=== PATIENT | female | born 1940 | race Caucasian/White ===

== ENCOUNTER 2018-09-01 11:16 | Inpatient (IN) | payer OTHER ==
[~2018-09-01] VITALS: Ht 154.9 cm; Wt 70.3 kg
[2018-09-01 11:54] LABS: BASOPHILS ABSOLUTE AUTO 0.07 K/mm3 (0.00-0.23); BASOPHILS PERCENT AUTO 1 % (0-2); EOSINOPHILS ABSOLUTE AUTO 0.12 K/mm3 (0.00-0.68); EOSINOPHILS PERCENT AUTO 1 % (0-6); IMMATURE GRAN ABSOLUTE AUTO 0.04 K/mm3 (0.00-0.10); IMMATURE GRAN PERCENT AUTO 0 % (0-1); LYMPHOCYTES ABSOLUTE AUTO 2.59 K/mm3 (0.84-5.20); LYMPHOCYTES PERCENT AUTO 27 % (21-46); MONOCYTES ABSOLUTE AUTO 0.55 K/mm3 (0.16-1.47); MONOCYTES PERCENT AUTO 6 % (4-13); Mean Corpuscular HGB 30.6 pg (26.0-34.0); Mean Corpuscular HGB Conc 33.3 g/dL (31.5-36.5); Mean Corpuscular Volume 92 fL (80-100); NEUTROPHILS ABSOLUTE AUTO 6.29 K/mm3 (1.96-9.15); NEUTROPHILS PERCENT AUTO 65 % (41-73); Platelet Count 248 K/mm3 (150-400); RDW Coefficient Variation 12.2 % (11.7-14.2); RDW Standard Deviation 41.9 fL (35.1-46.3); White Blood Cell Count 9.66 K/mm3 (4.00-11.30)
[2018-09-01 12:06] LABS: International Normalized Ratio 0.97
[2018-09-01 12:12] LABS: Alanine Aminotransfer (ALT/SGP 25 U/L (12-78); Albumin, Blood 3.7 g/dL (3.4-5.0); Albumin/Globulin Ratio 1.1 (0.8-1.8); Alk Phos 155 U/L (50-136); Anion Gap 7 mmol/L (6-16); Aspartate Aminotrans (AST/SGOT 14 U/L (12-37); Bilirubin, Total 0.6 mg/dL (0.1-1.0); Blood Urea Nitrogen 9 mg/dL (8-24); Bun/Creatinine Ratio 17.5 (12.0-20.0); CO2, Blood 31 mmol/L (21-32); Calcium, Blood 8.5 mg/dL (8.5-10.1); Chloride, Blood 102 mmol/L (98-108); Creatinine, Blood 0.51 mg/dL (0.40-1.00); Globulin, Blood 3.5 g/dL (2.2-4.0); Glomerular Filtration Rate >60 (60-); Glucose, Blood 238 mg/dL (70-99); Potassium, Blood 3.1 mmol/L (3.5-5.5); Sodium, Blood 140 mmol/L (136-145); Total Protein, Blood 7.2 g/dL (6.4-8.2)
[2018-09-01 12:17] LABS: Thyroid Stimulating Hormone 0.943 uIU/mL (0.360-4.800)
[2018-09-01 12:35] LABS: Source, Urine Clean Catch
[2018-09-01 12:46] LABS: Bilirubin, Urine Neg (Neg); Blood, Urine Neg (Neg); Glucose Qualitative, Urine 2+ (Neg); Ketones, Urine Neg (Neg); Leukocyte Esterase, Urine 1+ (Neg); Nitrite, Urine Neg (Neg); Protein, Urine 2+ (Neg); Urobilinogen, Urine NORM (Normal)
[2018-09-01 12:56] LABS: Appearance, Urine Clear (Clear); Bacteria Rare /hpf; Color, Urine Yellow (P-Yellow); Red Blood Cells, Urine Not Seen /hpf (0-2); Squamous Epithelial Cells Few /hpf (Few)
[2018-09-02 05:36] LABS: CHOL/HDL RATIO 3.5; Cholesterol 190 mg/dL (50-200); HDL Cholesterol 55 mg/dL (>39); LDL/HDL RATIO 1.7; Low Density Lipoprotein Chol 92 mg/dL (0-110); Triglycerides 213 mg/dL (30-160); Very Low Density Lipoprot Chol 42 mg/dL (6-32)
--- NOTE | 2018-09-02 07:53 | NUR ---
SHIFT SUMMARY PT IS A 77 Y/O, NEW ADMIT. SHE WAS ADMITTED FOR A STROKE AFTER SHE BEGAN HAVING NUMBNESS AND AN INABILITY TO GRASP WITH HER R HAND. THE PT WAS NEUROLOGICALLY INTACT ON ADMISSION, WITH ONLY MINIMAL WEAKNESS OF HER R HAND. NO FACIAL DROOP NOTED. PT'S BP RAN HIGH DURING THE NIGHT, BETWEEN 190-220 SYSTOLICALLY. SHE WAS GIVEN 10 MG OF HYDRALAZINE, WHICH DID NOT HELP HER BP. THE HOSPITALIST, JOHN DENNIS, WAS CONSULTED, AND IV LABETALOL WAS ORDERED. WHEN THE PT'S BP WAS RECHECKED FOR MORNING VITALS, IT WAS HIGH AT 227/115, AND THE LABETOLOL WAS GIVEN. ON RECHECK, IT HAD COME DOWN TO 188/84. ALL OTHER VITALS STABLE. NO OTHER ACUTE CHANGES IN PT CONDITION NOTED DURING THE NIGHT. WILL CONTINUE TO MONITOR AND TREAT PER EMAR UNTIL HAND OFF TO DAY SHIFT.
--- NOTE | 2018-09-02 09:41 | NUR ---
DNR CODE STATUS VERIFIED WITH ZANDRA BERRY. PURPLE WRISTBAND PLACED ON LEFT WRIST.
--- NOTE | 2018-09-02 10:09 | NUR ---
PT TO IMAGING FOR MRI.
--- NOTE | 2018-09-02 12:13 | NUR ---
DR CHÁVEZ NOTIFIED OF PT CONTINUED BP OF 202/101 EVEN AFTER PRN HYDRALAZINE, AND SCHEDULED ORAL MEDS. PER DR CHÁVEZ GIVE ANOTHER DOSE OF HCTZ AND WILL INCREASE TO 25MG DAILY, AND GIVE IV LABETALOL. WILL READRESS INCREASING OTHER MEDS AFTER A FEW HOURS. WILL CONT TO MONITOR.
--- NOTE | 2018-09-02 12:56 | NUR ---
WENT IN TO GIVE HCTZ AND IV LABETALOL PER DR CHÁVEZ, RECHECKED BP OF 160/100, PO HCTZ GIVEN, HELD OFF ON IV LABETALOL DUE TO NOT MEETING CRITEREA. WILL CONT TO MONITOR.
--- NOTE | 2018-09-02 16:55 | NUR ---
SHIFT SUMMARY- PT A/OX3, INDEP UP IN ROOM. PT REPORTS MILD TINGLING TO RIGHT HAND BUT HAS BEEN ABLE TO USE HAND TODAY. MRI COMPLETED, LACUNAR INFARCT LEFT THALAMUS. PT BP ELEVATED T/O THE AM, PT STARTED ON ORAL MEDS, PRN HYDRALAZINE GIVEN X1. PT STARTED ON METFORMIN FOR NEW DIAGNOSIS OF DIABETES, EDUCATED PRINTED OUT AND GIVEN TO PT AND ORGAN PIPE FINISHER CONSULT PLACED FOR DIABETES. LS CLEAR, ON RA. TELE ST AT 105. PHYSICAL THERAPY EVAL COMPLETED WHICH RECOMMENDED OUTPATIENT THERAPY. POSS D/C HOME TOMORROW. NO OTHER ACUTE CHANGES THIS SHIFT.
[2018-09-03 04:55] LABS: Anion Gap 9 mmol/L (6-16); Blood Urea Nitrogen 16 mg/dL (8-24); Bun/Creatinine Ratio 29.3 (12.0-20.0); CO2, Blood 28 mmol/L (21-32); Calcium, Blood 8.9 mg/dL (8.5-10.1); Chloride, Blood 103 mmol/L (98-108); Creatinine, Blood 0.55 mg/dL (0.40-1.00); Glomerular Filtration Rate >60 (60-); Glucose, Blood 174 mg/dL (70-99); Potassium, Blood 3.1 mmol/L (3.5-5.5); Sodium, Blood 140 mmol/L (136-145)
--- NOTE | 2018-09-03 06:20 | NUR ---
SHIFT SUMMARY PT IS 77 Y/O FEMALE, ADMITTED FOR A STROKE. SHE IS A&O X 4, AND ABLE TO AMBULATE SBA/INDEPENDENTLY AROUND THE ROOM. SHE IS STILL REPORTING SOME MINOR TINGLING TO HER RIGHT HAND AND R SIDE OF HER FACE, BUT IS OTHERWISE NEUROLOGICALLY INTACT. PT'S BP CONTINUES TO RUN HIGH, BETWEEN 170-180S SYSTOLICALLY. SHE WAS MEDICATED ONCE WITH PRN HYDRALAZINE. ALL OTHER VITALS STABLE. NO OTHER ACUTE CHANGES IN PT CONDITION NOTED DURING THE NIGHT. WILL CONTINUE TO MONITOR AND TREAT PER EMAR UNTIL HAND OFF TO DAY SHIFT.
[2018-09-03] MEDS ORDERED: ASPI81CH PO (10:31)
[2018-09-03] MEDS ORDERED: HYDCHL25 PO (10:33)
[2018-09-03] MEDS ORDERED: PRAVASTATIN SOD10 MG PO (10:34)
[2018-09-03] MEDS ORDERED: METF500C PO (10:34)
[2018-09-03] MEDS ORDERED: FISH OIL 1,0001 EAC1 PO (10:35)
[2018-09-03] MEDS ORDERED: ZESTRIL40 MG PO (10:37)
--- NOTE | 2018-09-03 11:30 | NUR ---
SHIFT SUMMARY/DC PT HAS HAD NO ACUTE CHANGES THIS SHIFT, NO COMPLAINTS OF ANY KIND. MEDICATED 1X FOR HIGH BP, 191/84 TO 133/66 AFTER HYDRAL ADMIN. BP MEDS INCREASED THIS SHIFT. REVIEWED DC INSTRUCTIONS W/PT AND SPOUSE, PT STATED THAT SHE HAD BP CUFF AT HOME FOR SELF MONITORING, BOTH VERBALIZED UNDERSTANDING OF INSTRUCTIONS (SON PRESENT WELL, AND WAS INVOLVED IN TEACHING). PT TRANSPORTED VIA W/C TO DC IN PRIVATE VEHICLE @ 1120.
== END 2018-09-03 11:26 | disposition home or self-care (01) | DRG 65 ==
LOC: EDSEX 11:16 → ER 11:16 → MEDS 11:17
PROVIDERS: Physician Assistant; ADMIT Internal Medicine
DX: I63.81 Other cerebral infarction due to occlusion or stenosis of small artery (principal); G81.91 Hemiplegia, unspecified affecting right dominant side; E11.9 Type 2 diabetes mellitus without complications; I16.0 Hypertensive urgency; E87.6 Hypokalemia; I10 Essential (primary) hypertension; R20.0 Anesthesia of skin; Z87.891 Personal history of nicotine dependence; Z91.19 Patient's noncompliance with other medical treatment and regimen; Z28.20 Immunization not carried out because of patient decision for unspecified reason
CPT/HCPCS: 36415; 70450; 70551; 71046; 80048; 80053; 80061; 81001; 83036; 84443; 85025; 85610; 87086; 93005; 93010; 93306; 93880; 96372; 96374; 96375; 96376; 97161; 97530; 99285-25; G0378; J0360; J1650

== ENCOUNTER → 2018-09-30 | Outpatient (CLI) | payer OTHER ==
[~2018-09-30] MED LIST: ASPI81CH PO; FISH OIL 1,0001 EAC1 PO; HYDCHL25 PO; METF500C PO; PRAVASTATIN SOD10 MG PO; ZESTRIL40 MG PO
== END ==
LOC: LAB 15:10 → LAB SHORT 15:10
DX: G60.9 Hereditary and idiopathic neuropathy, unspecified (principal); I10 Essential (primary) hypertension
CPT/HCPCS: 82607; 82746

== ENCOUNTER 2018-10-27 08:48 | Emergency (ER) | payer OTHER ==
[~2018-10-27] VITALS: Ht 154.9 cm; Wt 70.3 kg
== END 2018-10-27 11:59 | disposition home or self-care (01) ==
LOC: ER 08:48
DX: I73.9 Peripheral vascular disease, unspecified (principal); I77.9 Disorder of arteries and arterioles, unspecified; I10 Essential (primary) hypertension; E11.9 Type 2 diabetes mellitus without complications; Z79.899 Other long term (current) drug therapy; Z79.82 Long term (current) use of aspirin; Z79.84 Long term (current) use of oral hypoglycemic drugs; Z86.73 Personal history of transient ischemic attack (TIA), and cerebral infarction without residual deficits
CPT/HCPCS: 93926

== ENCOUNTER 2018-11-20 08:06 | Emergency (ER) | payer OTHER ==
[~2018-11-20] VITALS: Ht 157.5 cm; Wt 63.5 kg
[2018-11-20 09:30] LABS: BASOPHILS PERCENT AUTO 1 % (0-2); EOSINOPHILS ABSOLUTE AUTO 0.16 K/mm3 (0.00-0.68); EOSINOPHILS PERCENT AUTO 2 % (0-6); Hematocrit 44.7 % (33.0-51.0); Hemoglobin 14.9 g/dL (11.5-16.0); IMMATURE GRAN ABSOLUTE AUTO 0.06 K/mm3 (0.00-0.10); IMMATURE GRAN PERCENT AUTO 1 % (0-1); LYMPHOCYTES ABSOLUTE AUTO 2.93 K/mm3 (0.84-5.20); LYMPHOCYTES PERCENT AUTO 28 % (21-46); MONOCYTES ABSOLUTE AUTO 0.65 K/mm3 (0.16-1.47); MONOCYTES PERCENT AUTO 6 % (4-13); Mean Corpuscular HGB 29.7 pg (26.0-34.0); Mean Corpuscular HGB Conc 33.3 g/dL (31.5-36.5); Mean Corpuscular Volume 89 fL (80-100); Mean Platelet Volume 11.2 fL (9.1-12.4); NEUTROPHILS ABSOLUTE AUTO 6.46 K/mm3 (1.96-9.15); NEUTROPHILS PERCENT AUTO 62 % (41-73); Platelet Count 295 K/mm3 (150-400); RDW Coefficient Variation 12.3 % (11.7-14.2); RDW Standard Deviation 40.3 fL (35.1-46.3); Red Blood Cell Count 5.01 M/mm3 (3.80-5.20); White Blood Cell Count 10.36 K/mm3 (4.00-11.30)
[2018-11-20 09:59] LABS: Alanine Aminotransfer (ALT/SGP 13 U/L (12-78); Albumin, Blood 3.4 g/dL (3.4-5.0); Albumin/Globulin Ratio 0.9 (0.8-1.8); Alk Phos 101 U/L (50-136); Anion Gap 8 mmol/L (6-16); Aspartate Aminotrans (AST/SGOT 13 U/L (12-37); Bilirubin, Total 0.5 mg/dL (0.1-1.0); Blood Urea Nitrogen 20 mg/dL (8-24); Bun/Creatinine Ratio 33.7 (12.0-20.0); CO2, Blood 24 mmol/L (21-32); Calcium, Blood 9.3 mg/dL (8.5-10.1); Chloride, Blood 105 mmol/L (98-108); Creatinine, Blood 0.59 mg/dL (0.40-1.00); Globulin, Blood 3.8 g/dL (2.2-4.0); Glomerular Filtration Rate >60 (60-); Glucose, Blood 157 mg/dL (70-99); Potassium, Blood 3.9 mmol/L (3.5-5.5); Sodium, Blood 137 mmol/L (136-145); Total Protein, Blood 7.2 g/dL (6.4-8.2)
[2018-11-20] MEDS ORDERED: Naproxen Sodiu220 MG PO (10:35)
== END 2018-11-20 11:11 | disposition home or self-care (01) ==
LOC: ER 08:06
PROVIDERS: Physician Assistant
DX: M54.2 Cervicalgia (principal); I10 Essential (primary) hypertension; E11.9 Type 2 diabetes mellitus without complications; Z79.899 Other long term (current) drug therapy; Z79.82 Long term (current) use of aspirin
CPT/HCPCS: 70450; 72040; 80053; 84484; 85025; 93005; 93010; 99284-25

== ENCOUNTER 2018-12-13 08:38 | Observation (INO) | payer OTHER ==
[~2018-12-13] VITALS: Ht 157.5 cm; Wt 67.2 kg
[~2018-12-13 08:38] MED LIST changes: +Naproxen Sodiu220 MG PO
[2018-12-13] MEDS ORDERED: AMLO5 (09:04)
--- NOTE | 2018-12-13 13:19 | NUR ---
PROCEDURE COMPLETED WITH 6F SHEATH REMOVED FROM L FEMORAL ARTERY AND ANGIOSEAL SUCCESSFULLY DEPLOYED. DURING PATIENT DRAPE TEAR-DOWN, LLE PRIMARILY FOOT WAS BLANCHED OF COLOR. PRE-PROCEDURE, FOOT HAD BEEN WITNESSED WITH COLOR. DOPPLER CHECK FOR CIRCULATION WAS ABSENT IN BOTH DP AND PT SITES. FEMORAL SITE ABOVE AND BELOW PROCEDURE ARTERIOTOMY WAS PALPABLE. DR GILL NOTIFIED. ORDERS RECEIVED FOR HEPARIN 3000 UNITS IV- COMPLETED AT 1305. DR GILL RETURNED TO SIGN INSTALLER SUITE TO EXAMINE LIMB. ORDERED FULL HEPARINIZATION WITH GTT. ADDITIONAL 2000 UNITS IV GIVEN AT 1310. PT RETURNED TO [facility] RECOVERY ROOM AWAITING BED ASSIGNMENT. PHYSICIAN MENTIONED RETURNING PATIENT TO THE SIGN INSTALLER AT A LATER TIME TODAY.
--- NOTE | 2018-12-13 13:29 | NUR ---
PT C/O L LOWER LEG DISCOMFORT, PER ORDERS, PT MEDICATED WITH FENTANYL 50MCG IV. TOLERATES WELL. VSS. CONTINOUS MONITORING IN PLACE. PT PENDING ADMIT/ AWAITING BED ASSIGNMENT AT THIS TIME.
--- NOTE | 2018-12-13 13:50 | NUR ---
HEPARIN DRIP STARTED PER ORDERS AT 17.1 ML/HR, CONTINOUS MONITORING IN PLACE. PT RESTING AT THIS TIME, REPORTS PAIN HAS LESSENED TO 5/10 WITH LLE. PALE AND BLANCHING NOTED AT LLE/FOOT.
--- NOTE | 2018-12-13 14:05 | NUR ---
DR GILL IN ROOM DISCUSSING PLAN OF CARE. L FOOT REMAINS PULSELESS, R FOOT BOUNDING DP, DOPPLER ON R PT. VSS. PT BEING TRANSFERRED TO ICU 3 FOR CONTINUATION OF CARE.
--- NOTE | 2018-12-13 15:48 | NUR ---
1415-RECEIVED THIS PAIN FROM FIREARMS SALES ASSOCIATE. CAME IN FOR ELECTIVE PROCEDURE SECONDARY TO R CRITICAL LIMB ISCHEMIA. R LIMB HAS POSITIVE PULSES NOTED BY DOPPLER. WARM TO TOUCH. CAP REFILL 3 AND LESS. NOW CURRENTLY LEFT LIMB IS CRITICAL. PALE LOOKING, COOL TO TOUCH, CAP REFILL >3. NO PULSES NOTED ON DP/POST TIBS/POPLITEAL PULSES. PT COMPLAINTS OF CRAMPS OF 5/10 TO THIS L LIMB. PT REFUSED TO TAKE PAIN MEDICATION AT THIS TIME. PT HAS BEEN MEDICATED IN THE FIREARMS SALES ASSOCIATE FOR THE PAIN. PT WILL BE TAKEN BACK TO THE FIREARMS SALES ASSOCIATE ANYTIME THIS AFTERNOON. PT IS ON HEPARIN DRIP @ 15UNTS/KG/HR. 1515-DR. GILL CAME BY TO SEE PATIENT. UPDATED HIM OF PT'S STATUS. PT'S FAMILY AT BEDSIDE. DR. GILL TALKED TO THE PATIENT AND FAMILY. 1530-PT WAS TAKEN TO THE FIREARMS SALES ASSOCIATE AT THIS TIME.
[2018-12-13 17:54] LABS: Source, Urine Catheter
[2018-12-13 17:56] LABS: Bilirubin, Urine Neg (Neg); Blood, Urine Neg (Neg); Glucose Qualitative, Urine Neg (Neg); Ketones, Urine Neg (Neg); Leukocyte Esterase, Urine Neg (Neg); Nitrite, Urine Neg (Neg); Protein, Urine Neg (Neg); Specific Gravity, Urine 1.015 (1.003-1.022); Urobilinogen, Urine NORM (Normal)
[2018-12-13 18:02] LABS: Appearance, Urine Clear (Clear); Color, Urine Yellow (P-Yellow)
--- NOTE | 2018-12-13 18:21 | NUR ---
PT EATING WITH FAMILY AT BEDSIDE PT AWAKE, PLEASANT, EATING FINGER FOOD TRAY, DENIES PAIN. RIGHT GROIN SITE STABLE. TPA INFUSING THROUGH SHEATH. PT AND FAMILY EDUCATED ON IMPORTANCE OF NOT MOVING IN BED. PULSE OXIMETER TO LEFT GREAT TOE WITH GOOD WAVEFORM. WILL CONTINUE TO MONITOR
--- NOTE | 2018-12-13 19:00 | NUR ---
1730- back to room from the laborer/key man. Pt is alert and oriented. Denies pain at this time. Pulses can be doppled on both feet. Arterial Sheath to R groin present with TPA infusing to the R femoral artery. Access site to R pedal foot which is Yd to the R femoral sheath feeding TPA to the L femoral artery. Pt is alert and oriented. Denies pain at this time. 190-Report given to ZANDRA Canela.
--- NOTE | 2018-12-13 21:11 | NUR ---
ASSUMED PT CARE AT 1915 PT LYING SUPING IN BED WITH BED TILTED AT A 30 DEGREE ANGLE WHILE PT ATE; HWOEVER, BILATERAL LEGS MAINTAINED ALIGNMENT. PT AWARE NOT TO BEND OR MOVE LEGS. PT APPEARS ALERT AND ORIENTED; ABLE TO MAKE NEEDS KNOWN. BILATERAL PEDAL AND TIBIAL PULSES OBTAINED VIA DOPPLER. SKIN IS WARM, DRY, AND PINK TO BILATERAL FEET; HOWEVER, BILATERAL TOES ARE COOL TO THE TOUCH. LEFT GROIN ACCESS SITE HAS A TEGADERM CHG DRESSING IN PLACE WITH SCANT AMOUNT OF OOZING NOTED TO DRESSING, WHICH WAS OUTLINED; SOFT UPON PALPATION, NO HEMATOMA NOTED AROUND SITE; GAUZE PLACED IN GROIN TO MONITOR FURTHER OOZING. RIGHT FEMORAL SHEATH IN PLACE WITH TPA INFUSING A TOTAL OF 1MG/HR, WHICH IS Y-SITED WITH 0.5MG/HR GOING INTO EACH PORT; NO OOZING OR HEMATOMA NOTED TO RIGHT FEMORAL SITE. PT C/O 04/07 PAIN STATED SHE DIDN'T WANT ANY PAIN MEDICATIONS; HOWEVER, BLOOD PRESSURE WAS STARTING TO ELEVATED TO SBP 180'S-190'S. ENCOURAGED PT TO MANAGE HER PAIN IN ORDER TO GET ADEQUATE REST, WELL MANAGE VS; PT AGREED. MEDICATED WITH 25MCG OF FENTANYL, WHICH WAS UNEFFECTIVE; ADMINISTERED ANOTHER 25MCG PER ORDERS, WHICH APPEARED EFFECTIVE FOR PT; SBP DOWN TO 140'S-150'S. CALL LIGHT IN REACH.
--- NOTE | 2018-12-14 06:22 | NUR ---
END OF SHIFT SUMMARY PT HAS REMAINED ALERT AND ORIENTED; ABLE TO MAKE NEEDS KNOWN. PAIN HAS BEEN MANAGED T/O SHIFT WITH PT C/O TINGLING TO BILATERAL TOES; MEDICATED WITH 50MCG FENTANYL PER ORDERS; APPEARED EFFECTIVE FOR PT. BILATERAL PEDAL PULSES OBTAINED VIA DOPPLER; STRONG. BILATERAL LEGS ARE WARM TO THE TOUCH; BILATERAL TOES COOL TO THE TOUCH WITH CAP REFILL >3SEC. TPA CONTINUES TO INFUSE THROUGH RIGHT FEMORAL SHEATH AT 0.5MG/HR TOTAL; WITH EACH PORT INFUSING AT 0.25MG/HR. HEPARIN GTT CONTINUES AT 6MLS/HR VIA RIGHT WRIST 20G PERIPHERAL IV. LEFT FEMORAL SITE REMAINS SOFT AROUND SITE, NO HEMATOMA NOTED, SCANT AMOUNT OF OOZING THAT HASN'T PROGRESSED OUTSIDE OF OUTLINED AREA. CALL LIGHT WITHIN REACH; PT ABLE TO MAKE NEEDS KNOWN.
--- NOTE | 2018-12-14 08:01 | NUR ---
0700-ASSUMED CARE OF PT. PT IS ALERT AND ORIENTED. PT DENIES PAIN AT THIS TIME. L GROIN ACCESS SITE STABLE. R GROIN ACCESS SITE IS STABLE WITH A SHEATH TO THE SITE. TPA INFUSING TO L FEMORAL ARTERY/R FEMORAL ARTERY @ 0.25MG TO EACH ARTERY. PT IS AFEBRILE. NPO FOR THE PROCEDURE. HEPARIN DRIP @ 300UNITS/HR.
--- NOTE | 2018-12-14 09:08 | NUR ---
0810-SPOKE WITH DR. GILL REGARDING PT'S ELEVATED BLOOD PRESSURE AND CLARIFIED WITH HIM WHETHER TO GIVE PATIENT PLAVIX AND ASPIRIN, HE STATED PT CAN TAKE PLAVIX & ASPIRIN. ALSO PT CAN TAKE HER HOME BP MEDS. 0908-FAMILY AT BEDSIDE. UPDATED THEM OF PT'S CONDITION AND PLANS FOR THE DAY.
--- NOTE | 2018-12-14 10:58 | NUR ---
STILL WAITING FOR CRUCIBLE FURNACE TENDER TO TAKE PT BACK FOR THE PROCEDURE.
--- NOTE | 2018-12-14 15:57 | NUR ---
PEDAL PULSES CAN BE HEARD BY DOPPLER. R POSTERIOR 5TH TOE IS WHERE IT HURTS THE MOST PER PATIENT. THIS ALSO LOOKS SOMEWHAT WHITE SINCE YESTERDAY. THIS WAS ALSO POINTED OUT TO DR. GILL YESTERDAY. FEET ARE STILL WARM TO TOUCH. OVERALL FEET COLOR IS PINK.
--- NOTE | 2018-12-14 18:00 | NUR ---
SHIFT SUMMARY: PT IS ALERT AND ORIENTED. PT HAS BEEN MEDICATED WITH FENTANYL FOR PAIN PRN. PEDAL PULSES ARE PRESENT CAN BE HEARD BY DOPPLER. STILL WAITING TO BE TAKEN BACK TO THE MANAGER GAMING. PT STILL HAS TPA TO R FEMORAL SHEATH AT THE SAME DOSE. STILL ON HEPARIN DRIP.
--- NOTE | 2018-12-14 19:19 | NUR ---
REPORT GIVEN TO ZANDRA WILLARD. PT WAS TAKEN TO THE INTEGRITY DIRECTOR AT THIS TIME.
--- NOTE | 2018-12-14 19:37 | NUR ---
ASSUMED CARE OF PT AT 1900. REPORT RECEIVED AT BEDSIDE. PT PRESENTS IN BED. ALERT AND ORIENTED. PLEASANT AND COOPERATIVE WITH CARE AND ASSESSMENT. INTERN ARCHITECT TEAM TO ROOM AND TAKES PT FOR FOLLOW UP PROCEDURE. WILL AWAIT PT'S RETURN FROM PROCEDURE. GROIN SITE CHECKS DONE WITH OFFGOING RN. LEFT GROIN WITH SOME ECCHYMOSIS AND TRACE HEMATOMA. PER OFFGOING RN THIS HAS REMAINED UNCHANGED. TPA INFUSING PER ORDERS. RIGHT GROIN WITH SHEATH IN PLACE. NO S/S BLEEDING NOTED. WILL REVIEW CHART AND PLAN OF CARE FOR THIS PT.
[2018-12-14 20:44] LABS: BASOPHILS ABSOLUTE AUTO 0.05 K/mm3 (0.00-0.23); BASOPHILS PERCENT AUTO 1 % (0-2); EOSINOPHILS ABSOLUTE AUTO 0.09 K/mm3 (0.00-0.68); EOSINOPHILS PERCENT AUTO 1 % (0-6); Hematocrit 35.8 % (33.0-51.0); Hemoglobin 11.8 g/dL (11.5-16.0); IMMATURE GRAN ABSOLUTE AUTO 0.05 K/mm3 (0.00-0.10); IMMATURE GRAN PERCENT AUTO 1 % (0-1); LYMPHOCYTES ABSOLUTE AUTO 1.97 K/mm3 (0.84-5.20); LYMPHOCYTES PERCENT AUTO 21 % (21-46); MONOCYTES ABSOLUTE AUTO 0.74 K/mm3 (0.16-1.47); MONOCYTES PERCENT AUTO 8 % (4-13); Mean Corpuscular HGB 29.9 pg (26.0-34.0); Mean Corpuscular Volume 91 fL (80-100); NEUTROPHILS ABSOLUTE AUTO 6.63 K/mm3 (1.96-9.15); NEUTROPHILS PERCENT AUTO 70 % (41-73); Platelet Count 229 K/mm3 (150-400); RDW Coefficient Variation 12.4 % (11.7-14.2); Red Blood Cell Count 3.94 M/mm3 (3.80-5.20); White Blood Cell Count 9.53 K/mm3 (4.00-11.30)
--- NOTE | 2018-12-14 20:54 | NUR ---
PT RETURNS FROM [facility]. SHEATH WAS REMOVED FROM RIGHT GROIN. TPA WAS DISCONTINUED. GROIN SITE CHECKS DONE WITH HEART CENTER RN, AND PULSES VERIFIED. RIGHT GROIN WITH CLOSURE DEVICE. NO HEMATOMA OR OOZING TO NOTE. LEFT GROIN WITH DRESSING THAT WAS CHANGED BY HEART CENTER. REMAINS WITH SAME SMALL HEMATOMA UNCHANGED FROM PREVIOUS ASSESSMENT. LAB TO ROOM FOR BLOOD DRAW. PT'S SON TO ROOM. UPDATE GIVEN.
[2018-12-14 21:01] LABS: Alanine Aminotransfer (ALT/SGP 10 U/L (12-78); Albumin, Blood 2.9 g/dL (3.4-5.0); Albumin/Globulin Ratio 0.9 (0.8-1.8); Alk Phos 79 U/L (50-136); Anion Gap 7 mmol/L (6-16); Aspartate Aminotrans (AST/SGOT 9 U/L (12-37); Bilirubin, Total 0.6 mg/dL (0.1-1.0); Blood Urea Nitrogen 9 mg/dL (8-24); Bun/Creatinine Ratio 14.5 (12.0-20.0); CO2, Blood 28 mmol/L (21-32); Calcium, Blood 8.6 mg/dL (8.5-10.1); Chloride, Blood 102 mmol/L (98-108); Creatinine, Blood 0.62 mg/dL (0.40-1.00); Globulin, Blood 3.4 g/dL (2.2-4.0); Glomerular Filtration Rate >60 (60-); Glucose, Blood 129 mg/dL (70-99); Potassium, Blood 3.4 mmol/L (3.5-5.5); Sodium, Blood 137 mmol/L (136-145); Total Protein, Blood 6.3 g/dL (6.4-8.2)
--- NOTE | 2018-12-15 | NUR ---
PT'S GROIN SITES REMAIN UNCHANGED. MILD TENDERNESS TO AREA UPON PALPATION. PALPABLE PEDAL PULSES. PT VOICES NO COMPLAINTS AT THIS TIME.
--- NOTE | 2018-12-15 04:15 | NUR ---
PT HAS BEEN ABLE TO REST THIS NIGHT. MOVES HERSELF ABOUT IN BED. NO CHANGES TO PREVIOUS ASSESSMENTS OF GROIN SITES. HAVE OFFERED FOOD FOR PT THIS SHIFT, WHICH SHE STATES THAT SHE IS NOT HUNGRY AT THIS TIME. PT AWARE A BREAKFAST IS ORDERED FOR HER, AND THAT SHE CAN ASK FOR FOOD AT ANY TIME. PT VERBALIZES UNDERSTANDING. WILL CONTINUE TO MONITOR PT.
--- NOTE | 2018-12-15 06:41 | NUR ---
ORTHOSTATIC BLOOD PRESSURES DONE THIS AM WHICH REVEALS VERY STABLE VITALS. PT HAS NO VERTIGO WITH STANDING. CELESTE CATHETER WAS DISCONTINUED. PT TOLERATED THIS WELL. SHE CURRENTLY IS SITTING IN A RECLINER CHAIR. DID STATE THAT HER RIGHT FOOT/TOES WERE SORE WITH TRANSFER. WILL CONTINUE TO MONITOR PT, AND WILL REPORT OFF TO ONCOMING RN.
[2018-12-15] MEDS ORDERED: CLOP75 PO ×2 (08:55→09:48)
--- NOTE | 2018-12-15 10:07 | NUR ---
PRESCRIPTION FOR PLAVIX CALLED IN TO [facility].
--- NOTE | 2018-12-15 10:30 | NUR ---
NURSING SUMMARY AND DISCHARGE SUMMARY ALERT AND ORIENTED X4. ST ON MONITOR, HR 108, BP STABLE. LUNGS CLEAR, ROOM AIR, SATS >93%. BILATERAL GROIN PUNCTURE SITES WITH GUAZE/OPSITE DRESSINGS IN PLACE, CDI. PT AMBULATES WITH STANDBY ASSIST TO CHAIR AND BATHROOM. LEFT WRIST IV SITE IN PLACE. C/O RIGHT FOOT PAIN SINCE BLOOD FLOW RETURNING, HEEL WOUND WITHH MEPILEX HEEL PROTECTOR AND SCAB ON TOP OF FOOT. DENIES NEED FOR PAIN MEDICATIN.
== END 2018-12-15 10:45 | disposition home or self-care (01) ==
LOC: MHTC 08:38 → ICUE 13:46 → MHTC 14:46 → ICUE 14:47
PROVIDERS: ADMIT Radiology Diagnostic Radiology
DX: I73.9 Peripheral vascular disease, unspecified (principal); E11.9 Type 2 diabetes mellitus without complications; I10 Essential (primary) hypertension; Z79.899 Other long term (current) drug therapy; Z79.82 Long term (current) use of aspirin; Z79.84 Long term (current) use of oral hypoglycemic drugs; Z86.73 Personal history of transient ischemic attack (TIA), and cerebral infarction without residual deficits
CPT/HCPCS: 36415; 51702; 80053; 81003; 85025; 85347; 85384; 85730; 99152; 99153; C1714; C1725; C1751; C1760; C1769; C1876; C1884; C1887; C1894; C2623; J1644; J2250; J3010; J7030; Q9967

== ENCOUNTER 2018-12-19 09:36 | Day surgery (SDC) | payer OTHER ==
[~2018-12-19] VITALS: Ht 157.5 cm; Wt 68.0 kg
[~2018-12-19 09:36] MED LIST changes: +AMLO5; +CLOP75 PO
[2018-12-19 10:13] LABS: BASOPHILS PERCENT AUTO 1 % (0-2); EOSINOPHILS ABSOLUTE AUTO 0.28 K/mm3 (0.00-0.68); EOSINOPHILS PERCENT AUTO 2 % (0-6); IMMATURE GRAN ABSOLUTE AUTO 0.18 K/mm3 (0.00-0.10); IMMATURE GRAN PERCENT AUTO 1 % (0-1); LYMPHOCYTES ABSOLUTE AUTO 3.39 K/mm3 (0.84-5.20); LYMPHOCYTES PERCENT AUTO 24 % (21-46); MONOCYTES ABSOLUTE AUTO 1.16 K/mm3 (0.16-1.47); MONOCYTES PERCENT AUTO 8 % (4-13); Mean Corpuscular HGB 30.1 pg (26.0-34.0); Mean Corpuscular HGB Conc 33.3 g/dL (31.5-36.5); Mean Corpuscular Volume 90 fL (80-100); Mean Platelet Volume 11.3 fL (9.1-12.4); NEUTROPHILS PERCENT AUTO 64 % (41-73); Platelet Count 413 K/mm3 (150-400); RDW Coefficient Variation 12.7 % (11.7-14.2); RDW Standard Deviation 42.2 fL (35.1-46.3); Red Blood Cell Count 4.32 M/mm3 (3.80-5.20); White Blood Cell Count 14.01 K/mm3 (4.00-11.30)
[2018-12-19 10:32] LABS: Alanine Aminotransfer (ALT/SGP 13 U/L (12-78); Albumin, Blood 3.4 g/dL (3.4-5.0); Albumin/Globulin Ratio 0.8 (0.8-1.8); Alk Phos 117 U/L (50-136); Anion Gap 7 mmol/L (6-16); Aspartate Aminotrans (AST/SGOT 11 U/L (12-37); Bilirubin, Total 0.5 mg/dL (0.1-1.0); Blood Urea Nitrogen 33 mg/dL (8-24); Bun/Creatinine Ratio 39.4 (12.0-20.0); CO2, Blood 31 mmol/L (21-32); Calcium, Blood 9.5 mg/dL (8.5-10.1); Chloride, Blood 99 mmol/L (98-108); Creatinine, Blood 0.84 mg/dL (0.40-1.00); Globulin, Blood 4.2 g/dL (2.2-4.0); Glomerular Filtration Rate >60 (60-); Glucose, Blood 170 mg/dL (70-99); Sodium, Blood 137 mmol/L (136-145); Total Protein, Blood 7.6 g/dL (6.4-8.2)
--- NOTE | 2018-12-19 16:15 | NUR ---
PT CONTINUES TO SLEEP. FAMILY AT BEDSIDE. VSS. LEFT GROIN SITE SOFT AND NON-TENDER. NO BLEEDING OR SWELLING NOTED.
--- NOTE | 2018-12-19 16:28 | NUR ---
PT HAS VERBALIZED THE UNDERSTANDING OF CONTINUING BOTH PLAVIX AND ASA FOR AT LEAST ONE YEAR AFTER PROCEDURE TODAY.
== END 2018-12-19 17:15 | disposition home or self-care (01) ==
LOC: MHTC 09:36 → SURS 09:37 → MHTC 10:00
PROVIDERS: Radiology Diagnostic Radiology
DX: I70.203 Unspecified atherosclerosis of native arteries of extremities, bilateral legs (principal); E11.9 Type 2 diabetes mellitus without complications; I10 Essential (primary) hypertension; Z87.891 Personal history of nicotine dependence; Z79.899 Other long term (current) drug therapy; Z79.82 Long term (current) use of aspirin; Z79.84 Long term (current) use of oral hypoglycemic drugs; Z79.02 Long term (current) use of antithrombotics/antiplatelets; Z86.73 Personal history of transient ischemic attack (TIA), and cerebral infarction without residual deficits
CPT/HCPCS: 37226; 37228; 75716; 75774; 80053; 85025; 99152; 99153; C1725; C1760; C1769; C1876; C1887; C1894; C2623; J1644; J2250; J3010; J3480; J7030; Q9967

== ENCOUNTER 2018-12-28 07:33 | Day surgery (SDC) | payer OTHER | END 2018-12-28 22:50 | disposition home or self-care (01) | LOC: WOUND 07:33 | DX: E11.622 Type 2 diabetes mellitus with other skin ulcer (principal); L97.811 Non-pressure chronic ulcer of other part of right lower leg limited to breakdown of skin; L97.319 Non-pressure chronic ulcer of right ankle with unspecified severity; E11.621 Type 2 diabetes mellitus with foot ulcer; L97.422 Non-pressure chronic ulcer of left heel and midfoot with fat layer exposed; L97.411 Non-pressure chronic ulcer of right heel and midfoot limited to breakdown of skin; I10 Essential (primary) hypertension; F41.9 Anxiety disorder, unspecified; E11.51 Type 2 diabetes mellitus with diabetic peripheral angiopathy without gangrene; E11.21 Type 2 diabetes mellitus with diabetic nephropathy; Z86.73 Personal history of transient ischemic attack (TIA), and cerebral infarction without residual deficits; Z87.891 Personal history of nicotine dependence | CPT/HCPCS: G0463 ==

== ENCOUNTER 2019-01-04 00:19 | Day surgery (SDC) | payer OTHER | END 2019-01-04 23:03 | disposition home or self-care (01) | LOC: WOUND 00:19 | DX: E11.621 Type 2 diabetes mellitus with foot ulcer (principal); E11.622 Type 2 diabetes mellitus with other skin ulcer; L97.811 Non-pressure chronic ulcer of other part of right lower leg limited to breakdown of skin; L97.411 Non-pressure chronic ulcer of right heel and midfoot limited to breakdown of skin; E11.51 Type 2 diabetes mellitus with diabetic peripheral angiopathy without gangrene; E11.21 Type 2 diabetes mellitus with diabetic nephropathy; I10 Essential (primary) hypertension; F41.9 Anxiety disorder, unspecified; Z87.891 Personal history of nicotine dependence | CPT/HCPCS: G0463 ==

== ENCOUNTER 2019-01-11 00:23 | Day surgery (SDC) | payer OTHER | END 2019-01-11 22:53 | disposition home or self-care (01) | LOC: WOUND 00:23 | DX: E11.621 Type 2 diabetes mellitus with foot ulcer (principal); L97.422 Non-pressure chronic ulcer of left heel and midfoot with fat layer exposed; L97.411 Non-pressure chronic ulcer of right heel and midfoot limited to breakdown of skin; E11.622 Type 2 diabetes mellitus with other skin ulcer; L97.811 Non-pressure chronic ulcer of other part of right lower leg limited to breakdown of skin; L97.319 Non-pressure chronic ulcer of right ankle with unspecified severity; E11.51 Type 2 diabetes mellitus with diabetic peripheral angiopathy without gangrene; E11.21 Type 2 diabetes mellitus with diabetic nephropathy; I10 Essential (primary) hypertension | CPT/HCPCS: G0463 ==

== ENCOUNTER 2019-01-18 00:46 | Day surgery (SDC) | payer OTHER | END 2019-01-18 23:23 | disposition home or self-care (01) | LOC: WOUND 00:46 | DX: E11.621 Type 2 diabetes mellitus with foot ulcer (principal); E11.622 Type 2 diabetes mellitus with other skin ulcer; L97.811 Non-pressure chronic ulcer of other part of right lower leg limited to breakdown of skin; L97.411 Non-pressure chronic ulcer of right heel and midfoot limited to breakdown of skin; L97.421 Non-pressure chronic ulcer of left heel and midfoot limited to breakdown of skin; E11.51 Type 2 diabetes mellitus with diabetic peripheral angiopathy without gangrene; E11.21 Type 2 diabetes mellitus with diabetic nephropathy; I10 Essential (primary) hypertension; F41.9 Anxiety disorder, unspecified; Z87.891 Personal history of nicotine dependence; Z86.718 Personal history of other venous thrombosis and embolism ==

== ENCOUNTER → 2019-02-01 | Outpatient (CLI) | payer OTHER ==
[2019-02-01 12:37] LABS: Anion Gap 6 mmol/L (6-16); Blood Urea Nitrogen 18 mg/dL (8-24); CO2, Blood 28 mmol/L (21-32); Calcium, Blood 9.6 mg/dL (8.5-10.1); Chloride, Blood 103 mmol/L (98-108); Creatinine, Blood 0.72 mg/dL (0.40-1.00); Glomerular Filtration Rate >60 (60-); Glucose, Blood 129 mg/dL (70-99); Potassium, Blood 4.4 mmol/L (3.5-5.5); Sodium, Blood 137 mmol/L (136-145)
== END | disposition home or self-care (01) ==
LOC: LAB 11:15 → LAB SHORT 11:15
PROVIDERS: Physician Assistant
DX: E11.9 Type 2 diabetes mellitus without complications (principal); I10 Essential (primary) hypertension
CPT/HCPCS: 80048; 83036

== ENCOUNTER → 2020-08-12 | Outpatient (CLI) | payer OTHER ==
[~2020-08-12] MED LIST changes: +ATOR20 PO; +CYCL10 PO; +FUROSEMIDE20 MG PO; +GABA100 PO; +KLOR-CON 1010 ME3 PO; +LIDO700A20 TOP; +XARELTO PO
[2020-08-12 19:49] LABS: Creatinine, Urine Random 96.6 mg/dL (27.00-270.00)
[2020-08-12 19:51] LABS: Microalb/Creat Ratio UR, Rand 6.356 mg/g (0.000-30.000); Microalbumin, Random Urine 6.14 mg/L (0.000-20.000)
== END | disposition home or self-care (01) ==
LOC: LAB UCHC 11:19
PROVIDERS: Physician Assistant
DX: E11.9 Type 2 diabetes mellitus without complications (principal)
CPT/HCPCS: 82043; 82570

== ENCOUNTER 2020-11-18 08:34 | Day surgery (SDC) | payer OTHER ==
[~2020-11-18] VITALS: Ht 152.4 cm; Wt 69.9 kg
[~2020-11-18 08:34] MED LIST changes: -CYCL10 PO; -FUROSEMIDE20 MG PO; -KLOR-CON 1010 ME3 PO; -LIDO700A20 TOP; -XARELTO PO
[2020-11-18] MEDS ORDERED: XARELTO PO (12:48)
--- NOTE | 2020-11-18 13:37 | NUR ---
121 PATIENT RETURNED FROM THE [facility], SBAR RECIEVED FROM ZANDRA WILSON. RIGHT GROIN CHECKED BY TWO RN'S CLEAN AND DRESSING DRY. NO HEMATOMA NOTED. NO OOZING NOTED. MONITOR APPLIED AND VSS. NO PAIN NOTED FROM THE PATIENT. CALL LIGHT IN REACH. PATIENT SLEEPY. TAKING SMALL SIPS OF APPLE JUICE. PEDAL PULSES UNCHANGED FROM PRE PROCEDURE.
--- NOTE | 2020-11-18 13:56 | NUR ---
PATIENT TURNED UP ON LEFT SIDE TO FACILITATE EATING A MEAL. FED SELF. HOB UP 20 DEGREES. CALL LIGHT IN REACH. NOTIFIED SON OF BEDREST COMPLETE AT 1415 ADN THAT SHE WILL BE READY TO DISCHARGE AT 1440ISH. HE WILL COME TO THE BEDSIDE FOR PATIETN DISCHARGE. GROIN SITE UNCHANGED. PULSES +
--- NOTE | 2020-11-18 14:16 | NUR ---
PATIENT UP AND SITTING ON THE SIDE OF THE BED. UNDERWAER BACK IN PLACE. VOIDED 400 ML OF CLEAR YELLOW URINE PRIOR. FINISHING MEAL.
== END 2020-11-18 23:18 | disposition home or self-care (01) ==
LOC: MHTC 08:34
DX: I70.213 Atherosclerosis of native arteries of extremities with intermittent claudication, bilateral legs (principal); I65.29 Occlusion and stenosis of unspecified carotid artery; M25.471 Effusion, right ankle; M25.474 Effusion, right foot; M25.475 Effusion, left foot; M25.472 Effusion, left ankle; Z79.01 Long term (current) use of anticoagulants
CPT/HCPCS: 37236; 75716; 75774; 99152; 99153; C1725; C1757; C1760; C1769; C1874; C1887; C1894; C2623; C9764; C9772; J1644; J2250; J3010; J7030; J7050; Q9967

== ENCOUNTER 2021-03-11 13:18 | Emergency (ER) | payer OTHER ==
[~2021-03-11] VITALS: Ht 149.9 cm; Wt 69.4 kg
[~2021-03-11 13:18] MED LIST changes: +XARELTO PO
[2021-03-11] MEDS ORDERED: FUROSEMIDE20 MG PO (17:12)
[2021-03-11] MEDS ORDERED: KLOR-CON 1010 ME3 PO (17:12)
[2021-03-11] MEDS ORDERED: CYCL10 PO (19:00)
[2021-03-11] MEDS ORDERED: LIDO700A20 TOP (19:00)
== END 2021-03-11 19:21 | disposition home or self-care (01) ==
LOC: ER 13:18
DX: M62.838 Other muscle spasm (principal); Z79.899 Other long term (current) drug therapy
CPT/HCPCS: 96372; 99283-25; A9270; J1885

== ENCOUNTER → 2021-06-30 | Outpatient (CLI) | payer OTHER ==
[~2021-06-30] MED LIST changes: +CYCL10 PO; +FUROSEMIDE20 MG PO; +KLOR-CON 1010 ME3 PO; +LIDO700A20 TOP
[2021-06-30 15:22] LABS: Anion Gap 8 mmol/L (6-16); Blood Urea Nitrogen 23 mg/dL (8-24); Bun/Creatinine Ratio 32.1 (12.0-20.0); CO2, Blood 25 mmol/L (21-32); Calcium, Blood 9.3 mg/dL (8.5-10.1); Chloride, Blood 106 mmol/L (98-108); Creatinine, Blood 0.72 mg/dL (0.40-1.00); Glomerular Filtration Rate >60 (60-); Glucose, Blood 182 mg/dL (70-99); Potassium, Blood 3.9 mmol/L (3.5-5.5); Sodium, Blood 139 mmol/L (136-145)
== END | disposition home or self-care (01) ==
LOC: LAB SHORT 10:10 → LAB 10:10
PROVIDERS: Physician Assistant
DX: I10 Essential (primary) hypertension (principal); E11.40 Type 2 diabetes mellitus with diabetic neuropathy, unspecified
CPT/HCPCS: 80048; 83036

== ENCOUNTER → 2021-11-09 | Outpatient (CLI) | payer OTHER ==
[~2021-11-09] MED LIST changes: -AMLO5; +AMLO5 PO; +ATOR40TA PO; +CALCIUM CARBON500 M1 PO; +METF500 PO; +PREG25 PO
[2021-11-09 14:30] LABS: Creatinine, Urine Random 80.3 mg/dL (27.00-270.00); Microalb/Creat Ratio UR, Rand 7.173 mg/g (0.000-30.000); Microalbumin, Random Urine 5.76 mg/L (0.000-20.000)
== END | disposition home or self-care (01) ==
LOC: LAB 08:51
PROVIDERS: Physician Assistant
DX: E11.40 Type 2 diabetes mellitus with diabetic neuropathy, unspecified (principal)
CPT/HCPCS: 82043; 82570

== ENCOUNTER 2021-12-08 08:33 | Day surgery (SDC) | payer OTHER ==
[~2021-12-08] VITALS: Ht 149.9 cm; Wt 72.0 kg
[~2021-12-08 08:33] MED LIST changes: -ATOR40TA PO; -CALCIUM CARBON500 M1 PO; -METF500 PO; -PREG25 PO
[2021-12-08] MEDS ORDERED: ATOR40TA PO (09:42)
[2021-12-08] MEDS ORDERED: PREG25 PO (09:45)
[2021-12-08] MEDS ORDERED: CALCIUM CARBON500 M1 PO (09:46)
--- NOTE | 2021-12-08 14:05 | NUR ---
PT TO RECOVERY ROOM POST PROCEDURE. PT AWAKE AND CONVERSING APPROPRIATELY; DENIES PAIN POST PROCEDURE. MONITOR SR 90'S, B/P 131/80, AFEBRILE, SPO2 93-95% RA. R GROIN NO SWELLING/HEMATOMA, TEGADERM DRSG INTACT; PULSES 2+ DP, 1+ PT. L DP SITE NO SWELLING/HEMATOMA, LEONARDO AND TEGADERM DRSG INTACT. PT TAKING SIPS OF H2O WITHOUT ISSUE.
[2021-12-08] MEDS ORDERED: METF500 PO (14:15)
--- NOTE | 2021-12-08 15:08 | NUR ---
REPORT TO ZANDRA HERNANDEZ; ALL QUESTIONS ANSWERED.
--- NOTE | 2021-12-08 15:10 | NUR ---
ASSUMED CARE OF PATIENT. RIGHT GROIN SOFT AND NONTENDER, SMALL BRUISE NOTED UPPER INNER CORNER DRESSING. NO HEMATOMA, NO BLEEDING. HOB UP TO 30 DEGREES.
--- NOTE | 2021-12-08 15:45 | NUR ---
patient C/O pain top of left foot. Dr Bernardo here to assess. no hematoma, no bleeding , dressing D&I. Dr Bernardo ordered 2 tylenol po for pain, and that the patient may take advil or tylenol at home for foot pain.
--- NOTE | 2021-12-08 16:25 | NUR ---
TYLENOL GIVEN FOR FOOT PAIN, ICE PACK PLACED TO TOP OF LEFT FOOT. PATIENT UP TO BED SIDE CAMODE TO VOID.
--- NOTE | 2021-12-08 16:45 | NUR ---
PATIENT SITTING IN CHAIR. LEFT FOOT SITE REDRESSED. NO BLEEDING, NO HEMATOMA. RIGHT GROIN SITE REMAINS STABLE.
--- NOTE | 2021-12-08 17:05 | NUR ---
CBG DONE RESULTS 141. PATIENT DRESSING AT BEDSIDE WITH ASSIST.
--- NOTE | 2021-12-08 17:20 | NUR ---
PATIENT VERBALIZED UNDERSTANDING OF DISCHARGE INSTRUCTIONS AND PRECAUTIONS. RIGHT GROIN SITE UNCHANGED/STABLE. LEFT FOOT SITE DRESSING D&I, NO HEMATOMA, NO BLEEDING. PATIENT STATES NO CHANGE IN PAIN IN LEFT FOOT. INSTRUCTED TO NOTIFY DR GILL IF PAIN IS NOT RESOLVING BY TOMORROW. IV SITE DCED WITH CATHETER INTACT. PATIENT TRANSFERRED BY WHEEL CHAIR CAR. SON DRIVING.
== END 2021-12-08 17:20 | disposition home or self-care (01) ==
LOC: MHTC 08:33
DX: E11.51 Type 2 diabetes mellitus with diabetic peripheral angiopathy without gangrene (principal); I70.223 Atherosclerosis of native arteries of extremities with rest pain, bilateral legs; I87.2 Venous insufficiency (chronic) (peripheral); E11.69 Type 2 diabetes mellitus with other specified complication; I10 Essential (primary) hypertension; I65.21 Occlusion and stenosis of right carotid artery; Z87.891 Personal history of nicotine dependence
CPT/HCPCS: 37224; 37229; 37232; 75625; 75716; 75774; 76937; 85347; 99152; 99153; A9270; C1725; C1760; C1769; C1885; C1887; C1894; C2623; J1644; J2250; J3010; J7030; J7050; Q9967

== ENCOUNTER 2022-07-25 19:10 | Emergency (ER) | payer OTHER ==
[~2022-07-25 19:10] MED LIST changes: +ATOR40TA PO; +CALCIUM CARBON500 M1 PO; +METF500 PO; +PREG25 PO
== END 2022-07-26 03:44 | disposition home or self-care (01) ==
DX: R10.9 Unspecified abdominal pain (principal); E87.6 Hypokalemia; I10 Essential (primary) hypertension; E11.9 Type 2 diabetes mellitus without complications; Z79.899 Other long term (current) drug therapy; Z79.82 Long term (current) use of aspirin; Z79.84 Long term (current) use of oral hypoglycemic drugs; Z87.891 Personal history of nicotine dependence; Z20.822 Contact with and (suspected) exposure to COVID-19

== ENCOUNTER 2023-04-17 12:41 | Emergency (ER) | payer OTHER ==
[~2023-04-17] VITALS: Ht 149.9 cm; Wt 65.8 kg
[2023-04-17 13:01] VITALS: BP 150/73
[2023-04-17 13:53] LABS: Hematocrit 38.2 % (33.0-51.0); Hemoglobin 13.2 g/dL (11.5-16.0); Mean Corpuscular HGB 31.2 pg (26.0-34.0); Mean Corpuscular HGB Conc 34.6 g/dL (31.5-36.5); Mean Corpuscular Volume 90 fL (80-100); Mean Platelet Volume 10.8 fL (9.1-12.4); Platelet Count 344 K/mm3 (150-400); RDW Coefficient Variation 11.9 % (11.7-14.2); Red Blood Cell Count 4.23 M/mm3 (3.80-5.20)
[2023-04-17 13:54] LABS: White Blood Cell Count 12.48 K/mm3 (4.00-11.30)
[2023-04-17 14:12] LABS: BASOPHILS PERCENT MAN 0 % (0-2); EOSINOPHILS PERCENT MAN 0 % (0-6); LYMPHOCYTES % ATYPICAL MANUAL 1 % (0-0); LYMPHOCYTES ABSOLUTE MAN 2.49 K/mm3 (0.84-5.20); LYMPHOCYTES PERCENT MAN 19 % (21-46); MONOCYTES ABSOLUTE MAN 0.49 K/mm3 (0.16-1.47); MONOCYTES PERCENT MAN 4 % (4-13); NEUTROPHILS ABSOLUTE MAN 9.48 K/mm3 (1.96-9.15); SEG NEUTROPHILS PERCENT MAN 76 % (41-73); TOTAL CELLS COUNTED 100
[2023-04-17 14:27] LABS: Albumin, Blood 3.5 g/dL (3.4-5.0); Albumin/Globulin Ratio 0.9 (0.8-1.8); Bilirubin, Total 0.6 mg/dL (0.1-1.0); Bun/Creatinine Ratio 24.2 (12.0-20.0); Calcium, Blood 9.8 mg/dL (8.5-10.1); Creatinine, Blood 0.7 mg/dL (0.40-1.00); Globulin, Blood 4.1 g/dL (2.2-4.0); Potassium, Blood 4.2 mmol/L (3.5-5.5); Total Protein, Blood 7.6 g/dL (6.4-8.2)
[2023-04-17] MEDS ORDERED: Methocarbamol500 MG PO (15:36)
[2023-04-17] MEDS ORDERED: LISI20 PO (15:36)
[2023-04-17 17:25] LABS: Source, Urine Clean Catch
[2023-04-17 17:31] LABS: Appearance, Urine Clear (Clear); Bilirubin, Urine Neg (Neg); Blood, Urine Neg (Neg); Color, Urine Yellow (P-Yellow); Glucose Qualitative, Urine Neg (Neg); Ketones, Urine 3+ (Neg); Leukocyte Esterase, Urine Neg (Neg); Nitrite, Urine Neg (Neg); Protein, Urine 1+ (Neg); Urobilinogen, Urine NORM (Normal)
[2023-04-17] MEDS ORDERED: LIDOCAINE1 EACH TOP (18:26)
== END 2023-04-17 18:49 | disposition home or self-care (01) ==
LOC: ER 12:41
PROVIDERS: Student in an Organized Health Care Education/Training Program
DX: R07.81 Pleurodynia (principal); Z79.899 Other long term (current) drug therapy; Z79.82 Long term (current) use of aspirin; Z79.84 Long term (current) use of oral hypoglycemic drugs; I10 Essential (primary) hypertension; E11.9 Type 2 diabetes mellitus without complications; Z87.891 Personal history of nicotine dependence
CPT/HCPCS: 71046; 71260; 74177; 80053; 83690; 84484; 85025; 85379; 93005; 93010; 96374; 99284-25; J1885; J7030; Q9967

== ENCOUNTER → 2023-12-20 | Outpatient (CLI) | payer OTHER ==
[~2023-12-20] MED LIST changes: +LIDOCAINE1 EACH TOP; +LISI20 PO; +Methocarbamol500 MG PO
== END | disposition home or self-care (01) ==
LOC: LAB 09:15 → LAB SHORT 09:15
DX: R06.00 Dyspnea, unspecified (principal)
CPT/HCPCS: 83880

== ENCOUNTER → 2024-03-21 | Outpatient (CLI) | payer OTHER ==
[2024-03-21 13:36] LABS: BASOPHILS ABSOLUTE AUTO 0.08 K/mm3 (0.00-0.23); BASOPHILS PERCENT AUTO 1 % (0-2); EOSINOPHILS ABSOLUTE AUTO 0.26 K/mm3 (0.00-0.68); EOSINOPHILS PERCENT AUTO 3 % (0-6); Hematocrit 44.7 % (33.0-51.0); Hemoglobin 15.1 g/dL (11.5-16.0); IMMATURE GRAN ABSOLUTE AUTO 0.05 K/mm3 (0.00-0.10); IMMATURE GRAN PERCENT AUTO 1 % (0-1); LYMPHOCYTES ABSOLUTE AUTO 3.18 K/mm3 (0.84-5.20); LYMPHOCYTES PERCENT AUTO 33 % (21-46); MONOCYTES PERCENT AUTO 7 % (4-13); Mean Corpuscular HGB 30.3 pg (26.0-34.0); Mean Corpuscular HGB Conc 33.8 g/dL (31.5-36.5); Mean Corpuscular Volume 90 fL (80-100); Mean Platelet Volume 11.6 fL (9.1-12.4); NEUTROPHILS ABSOLUTE AUTO 5.33 K/mm3 (1.96-9.15); NEUTROPHILS PERCENT AUTO 56 % (41-73); Platelet Count 288 K/mm3 (150-400); RDW Coefficient Variation 12.5 % (11.7-14.2); RDW Standard Deviation 41.1 fL (35.1-46.3); Red Blood Cell Count 4.99 M/mm3 (3.80-5.20)
[2024-03-21 13:40] LABS: LDL/HDL RATIO 0.9
[2024-03-21 13:41] LABS: Alanine Aminotransfer (ALT/SGP 17 U/L (12-78); Albumin, Blood 3.7 g/dL (3.4-5.0); Alk Phos 161 U/L (50-136); Anion Gap 9 mmol/L (3-11); Aspartate Aminotrans (AST/SGOT 19 U/L (12-37); Bilirubin, Total 0.4 mg/dL (0.1-1.0); Blood Urea Nitrogen 13 mg/dL (8-24); Bun/Creatinine Ratio 19.8 (12.0-20.0); CHOL/HDL RATIO 2.2; CO2, Blood 29 mmol/L (21-32); Calcium, Blood 9.9 mg/dL (8.5-10.1); Chloride, Blood 107 mmol/L (98-108); Cholesterol 174 mg/dL (50-200); Creatinine, Blood 0.66 mg/dL (0.40-1.00); Globulin, Blood 3.8 g/dL (2.2-4.0); Glomerular Filtration Rate 87 (60-); Glucose, Blood 152 mg/dL (70-99); HDL Cholesterol 79 mg/dL (>39); Low Density Lipoprotein Chol 67 mg/dL (0-110); Potassium, Blood 3.8 mmol/L (3.5-5.5); Sodium, Blood 141 mmol/L (136-145); Total Protein, Blood 7.5 g/dL (6.4-8.2); Triglycerides 138 mg/dL (30-160); Very Low Density Lipoprot Chol 27 mg/dL (6-32)
== END | disposition home or self-care (01) ==
LOC: LAB 11:01 → LAB SHORT 11:01
PROVIDERS: Nurse Practitioner Family
DX: E11.40 Type 2 diabetes mellitus with diabetic neuropathy, unspecified (principal); I10 Essential (primary) hypertension; R06.00 Dyspnea, unspecified
CPT/HCPCS: 80053; 80061; 83036; 83880; 85025